=== PATIENT | female | born 1985 | race Caucasian/White ===

== ENCOUNTER 2022-11-11 19:45 | Inpatient (IN) | payer OTHER ==
[2022-11-11 20:43] VITALS: BMI 29.5
[2022-11-11] MEDS: DEXTROSE 5%-LACTATED RINGERS 1,000 ML IV SCH (21:30)
[2022-11-11 22:03] LABS: BASO % 0.5 % (0-2.0); EOS % 0.6 % (0-4.5); HEMATOCRIT 44.2 % (32.4-45.2); HEMOGLOBIN 14.3 GM/dL (10.7-15.3); LYMPH % 26.1 % (8-40); MCH 28.7 pg (25.7-33.7); MCHC 32.4 g/dl (32.0-36.0); MEAN CELL VOLUME 88.4 fl (80-96); MONO % 6.8 % (3.8-10.2); PLATELET COUNT 187 10^3/uL (134-434); RBC 4.99 M/mm3 (3.60-5.2); WHITE BLOOD COUNT 6.6 K/mm3 (4.0-10.0)
[2022-11-11 22:10] LABS: INR 0.91 (0.83-1.09); PROTHROMBIN TIME (PATIENT) 10.4 SEC (9.7-13.0)
[2022-11-11 22:13] LABS: ACTIVATED PTT 27.5 SECONDS (25.2-36.5)
[2022-11-11 22:21] LABS: CALCIUM 8.7 mg/dL (8.5-10.1)
[2022-11-11 22:23] LABS: BLOOD UREA NITROGEN 14.1 mg/dL (7-18)
[2022-11-11 22:25] LABS: CREATININE 0.6 mg/dL (0.55-1.3)
[2022-11-11] MEDS: MISOPROSTOL 25 MCG TABLET (COMPOUNDED BY PHARMACY) PV SCH (22:51)
[2022-11-11 23:17] LABS: HIV INTERPRETATION NEGATIVE (NEGATIVE)
[2022-11-12] MEDS: DEXTROSE 5%-LACTATED RINGERS 1,000 ML IV SCH (02:55)
[2022-11-12] MEDS ORDERED: OXYTOCIN 20 UNITS in 0.9% NS 20 UNIT/1,000 ML INFUS.BAG IV ONE (07:10)
[2022-11-12] MEDS ORDERED: OXYTOCIN 30 UNITS in 0.9% NS 30 UNIT/500 ML INFUS.BAG IVPB ONE (07:56)
[2022-11-12] MEDS ORDERED: SODIUM CHLORIDE 500 ML IV STA (08:30)
[2022-11-12] MEDS ORDERED: LIDOCAINE HCL 1% PRESERVATIVE FREE - 30ML VIAL ONE (09:00)
[2022-11-12 09:27] LABS: CORD BASE EXCESS -5.8 mmol/L (0-2); CORD HCO3 20.1 mmHg (20-29); CORD PCO2 41.3 mmHg (30-78); CORD pH 7.306 (7.14-7.44)
[2022-11-12] MEDS ORDERED: WITCH HAZEL 50% (TUCKS) 40 PAD/JAR PAD TP PRN (10:47)
[2022-11-12] MEDS ORDERED: ACETAMINOPHEN 325 MG TABLET (FP) PO PRN (10:47)
[2022-11-12] MEDS ORDERED: IBUPROFEN 600 MG TABLET (FP) PO PRN (10:47)
[2022-11-12] MEDS ORDERED: BENZOCAINE 28 GM HEMORRHOIDAL OINTMENT TP PRN (10:47)
[2022-11-12] MEDS ORDERED: BENZOCAINE 20% 57 GM BOTTLE TP PRN (10:47)
[2022-11-12] MEDS ORDERED: OXYTOCIN 20 UNITS in 0.9% NS 20 UNIT/1,000 ML INFUS.BAG IV SCH (11:00)
[2022-11-12] MEDS ORDERED: FERROUS SO4 325 MG TABLET (FP) ONE (12:18)
[2022-11-12] MEDS: FERROUS SO4 325 MG TABLET (FP) PO SCH ×2 (12:22→18:01)
[2022-11-12] MEDS ORDERED: OXYTOCIN 30 UNITS in 0.9% NS 30 UNIT/500 ML INFUS.BAG IVPB SCH (12:30)
[2022-11-13 08:17] LABS: BASO % 0.3 % (0-2.0); EOS % 0.6 % (0-4.5); HEMATOCRIT 35.3 % (32.4-45.2); HEMOGLOBIN 11.5 GM/dL (10.7-15.3); LYMPH % 14.7 % (8-40); MCHC 32.7 g/dl (32.0-36.0); MEAN CELL VOLUME 88.7 fl (80-96); MEAN PLT VOLUME 10.9 fl (7.5-11.1); MONO % 4.7 % (3.8-10.2); NEUT % 79.7 % (42.8-82.8); PLATELET COUNT 154 10^3/uL (134-434); RBC 3.98 M/mm3 (3.60-5.2); RDW 15.6 % (11.6-15.6); WHITE BLOOD COUNT 13.4 K/mm3 (4.0-10.0)
[2022-11-13] MEDS: FERROUS SO4 325 MG TABLET (FP) PO SCH ×3 (09:00→17:55)
[2022-11-13] MEDS: PRENATAL VITAMINS W/ FOLIC ACID TABLET (FP) PO SCH (09:25)
[2022-11-13] MEDS: MISOPROSTOL 25 MCG TABLET (COMPOUNDED BY PHARMACY) PV SCH (12:12)
[2022-11-14] MEDS: FERROUS SO4 325 MG TABLET (FP) PO SCH (08:39)
[2022-11-14 10:12] VITALS: BP 127/68; PULSE 62; RESP 17; TEMP 97.6
[2022-11-14] MEDS: PRENATAL VITAMINS W/ FOLIC ACID TABLET (FP) PO SCH (10:23)
== END 2022-11-14 11:20 | disposition home or self-care (01) | DRG 560 ==
LOC: JLDR 19:45 → J3W 11-12 13:00
PROVIDERS: ADMIT Obstetrics & Gynecology Maternal & Fetal Medicine; ATTEND Obstetrics & Gynecology Maternal & Fetal Medicine
PROC: 10E0XZZ Delivery of Products of Conception, External Approach (ICD-10-PCS; principal; 2022-11-12)
PROC: 0KQM0ZZ Repair Perineum Muscle, Open Approach (ICD-10-PCS; 2022-11-12)
PROC: 0W8NXZZ Division of Female Perineum, External Approach (ICD-10-PCS; 2022-11-12)
DX: O48.0 Post-term pregnancy (principal); O98.52 Other viral diseases complicating childbirth; U07.1 COVID-19; O24.420 Gestational diabetes mellitus in childbirth, diet controlled; O70.1 Second degree perineal laceration during delivery; Z3A.40 40 weeks gestation of pregnancy; Z37.0 Single live birth
CPT/HCPCS: 36415; 36600; 59409; 80048; 82803; 85025; 85610; 85730; 86780; 86850; 86900; 86901; 87389; 88307-TC; C9803-CS; U0003; U0005